=== PATIENT | male | born 1995 | race Two or more races ===

== ENCOUNTER 2020-05-13 10:51 | Outpatient (CLI) | payer OTHER | END 2020-05-13 23:59 | disposition home or self-care (01) | LOC: LAB 10:51 | PROVIDERS: ATTEND Specialist | DX: Z01.812 Encounter for preprocedural laboratory examination (principal); U07.1 COVID-19 | CPT/HCPCS: 87426; C9803; U0003 ==

== ENCOUNTER → 2020-05-28 | Outpatient (CLI) | payer OTHER | END | disposition home or self-care (01) | LOC: LAB 14:00 | PROVIDERS: ATTEND Specialist | DX: U07.1 COVID-19 (principal) | CPT/HCPCS: 87426; C9803 ×2; U0003 ==

== ENCOUNTER 2020-06-09 09:00 | Outpatient (CLI) | payer OTHER | END 2020-06-09 23:59 | disposition home or self-care (01) | LOC: LAB 09:00 | PROVIDERS: ATTEND Specialist | DX: U07.1 COVID-19 (principal) | CPT/HCPCS: 87426; C9803 ×2; U0003 ==

== ENCOUNTER 2020-06-25 08:43 | Outpatient (CLI) | payer OTHER | END 2020-06-25 23:59 | disposition home or self-care (01) | LOC: LAB 08:43 | PROVIDERS: ATTEND Specialist | DX: U07.1 COVID-19 (principal) | CPT/HCPCS: C9803; U0003 ==

== ENCOUNTER 2020-07-30 09:00 | Outpatient (CLI) | payer OTHER | END 2020-07-30 23:59 | disposition home or self-care (01) | LOC: LAB 09:00 | PROVIDERS: ATTEND Specialist | DX: Z01.812 Encounter for preprocedural laboratory examination (principal); Z20.822 Contact with and (suspected) exposure to COVID-19 | CPT/HCPCS: C9803; U0003 ==

== ENCOUNTER 2020-08-04 05:13 | Day surgery (SDC) | payer OTHER ==
[2020-08-04] MEDS ORDERED: methylPREDNISolone ACETATE 80 MG/ML VIAL ONE (05:17)
[2020-08-04] MEDS ORDERED: EPINEPHRINE (1:1000) 1 MG/ML AMPUL ONE (05:17)
[2020-08-04] MEDS ORDERED: LIDOCAINE HCL/MPF 1% 30 ML VIAL IJ ONE (05:18)
[2020-08-04] MEDS ORDERED: SUCCINYLCHOLINE CHLORIDE 20 MG/ML VIAL ONE (05:56)
[2020-08-04] MEDS ORDERED: ROCURONIUM BROMIDE 50 MG/5 ML ONE (05:56)
[2020-08-04] MEDS ORDERED: MIDAZOLAM HCL 2 MG/2ML VIAL ONE (05:56)
[2020-08-04] MEDS ORDERED: FENTANYL PF 100MCG/2ML AMPUL ONE (06:22)
== END 2020-08-04 08:45 | disposition home or self-care (01) ==
LOC: DS 05:13
PROVIDERS: ATTEND Specialist
DX: S43.402A Unspecified sprain of left shoulder joint, initial encounter (principal); X58.XXXA Exposure to other specified factors, initial encounter; Y93.89 Activity, other specified; Y92.89 Other specified places as the place of occurrence of the external cause; Y99.8 Other external cause status
CPT/HCPCS: 29806; A4217; A4565; C1713; J0171; J0330 ×2; J0690; J1040; J1100; J1885; J2250; J2405; J2704; J3010; J3490 ×3